=== PATIENT | female | born 1955 | race Native Hawaiian/Other Pacific Islander ===

== ENCOUNTER 2016-08-20 08:52 | Outpatient (CLI) | payer OTHER | END 2016-08-20 19:11 | disposition home or self-care (01) | LOC: MAMMO 08:52 | DX: Z12.31 Encounter for screening mammogram for malignant neoplasm of breast (principal) | CPT/HCPCS: G0202-TC ==

== ENCOUNTER 2018-05-26 10:03 | Outpatient (CLI) | payer OTHER | END 2018-05-26 19:16 | disposition home or self-care (01) | LOC: MAMMO 10:03 | DX: Z12.31 Encounter for screening mammogram for malignant neoplasm of breast (principal) ==

== ENCOUNTER 2020-06-21 09:06 | Outpatient (CLI) | payer OTHER | END 2020-06-21 21:29 | disposition home or self-care (01) | LOC: MAMMO 09:06 | PROVIDERS: ATTEND Registered Nurse | DX: Z12.31 Encounter for screening mammogram for malignant neoplasm of breast (principal) ==

== ENCOUNTER 2021-06-27 14:48 | Outpatient (CLI) | payer OTHER | END 2021-06-27 21:09 | disposition home or self-care (01) | LOC: MAMMO 14:48 | PROVIDERS: ATTEND Registered Nurse | DX: Z12.31 Encounter for screening mammogram for malignant neoplasm of breast (principal) ==